=== PATIENT | female | born 2000 | race American Indian/Alaskan Native ===

== ENCOUNTER 2019-02-22 07:56 | Emergency (ER) | payer MEDICAID ==
[2019-02-22] MEDS ORDERED: NACL 0.9% 1000 ML 1,000 ML IV ONE (08:27)
[2019-02-22] MEDS ORDERED: ZOFRAN IV ONE (08:27)
[2019-02-22] MEDS ORDERED: TYLENOL PO ONE (08:29)
--- NOTE | 2019-02-22 08:33 | Emergency Department Report ---
ED Headache HPI - General Chief Complaint: Eye Problems Stated Complaint: BLURRED VISION/HEADACHE Time Seen by Provider: 02/22/19 08:11 Source: patient Exam Limitations: no limitations - History of Present Illness Initial Comments: 18-year-old female with no significant past medical and surgical history presents to the hospital complaints of intermittent left sided headache and blurred vision times one week. She is currently 19 weeks with her second . First resulted in a miscarriage in early first trimester. She has received care. She reports a left-sided frontal intermittent throbbing headache rated 7/10 in intensity that is currently present. No aggravating or alleviating factors reported. She is not taking any medications for pain. She complains of intermittent blurred vision times one week that worsened this morning prior to calling EMS. Blurred vision is now resolved. She does not wear glasses or contact lenses. Denies history of migraine or previous headache symptoms. She's had nausea and intermittent vomiting throughout her and was unable to fill her prescribed anti- emetic since it was not covered by insurance. Although decreased food intake reported patient is drinking alot of water (She presents with a 1/2 empty 2 liter bottle filled with water). She denies diarrhea, abdominal pain, chest p ain, shortness of breath, leg edema, dysuria, focal weakness, focal numbness, neck pain, or fever. PET STYLIST: Dr. Amy Ugarte Allergies/Adverse Reactions: Allergies No Known Allergies Allergy (Verified 02/22/19 07:57) Home Medications: Ambulatory Orders Ibuprofen [Motrin] 600 mg PO Q8H PRN #30 tablet 08/10/18 oxyCODONE /ACETAMINOPHEN [Percocet 5/325] 1 tab PO Q6HR PRN #20 tablet 08/10/18 Nitrofurantoin [place]/M-Cryst [Macrobid CAP] 100 mg PO Q12HR #14 capsule 02/22/19 Ondansetron [Zofran Odt] 4 mg PO Q8HR PRN #20 tab.rapdis 02/22/19 ED Review of Systems ROS: Stated complaint: BLURRED VISION/HEADACHE Other details as noted in HPI Comment: All other systems reviewed and negative ED Past Medical Hx - Past Medical History Previous Medical History?: No - Surgical History Past Surgical History?: No - Social History Smoking Status: Never Smoker Substance Use Type: None - Medications Home Medications: Home Medications Medication Instructions Recorded Confirmed Last Taken Type Ibuprofen [Motrin] 600 mg PO Q8H PRN #30 tablet 08/10/18 Unknown Rx oxyCODONE /ACETAMINOPHEN [Percocet 1 tab PO Q6HR PRN #20 tablet 08/10/18 Unknown Rx 5/325] Nitrofurantoin [place]/M-Cryst 100 mg PO Q12HR #14 capsule 02/22/19 Unknown Rx [Macrobid CAP] Ondansetron [Zofran Odt] 4 mg PO Q8HR PRN #20 tab.rapdis 02/22/19 Unknown Rx ED Physical Exam - General Limitations: No Limitations - Other Other exam information: General: No limitations, patient is alert in no acute distress Head exam: Atraumatic, normocephalic Eyes exam: Normal appearance, pupils equal reactive to light, extraocular movements intact, visual acuity bilateral 20/13, R 20/20, L 20/20 ENT: Moist mucous membrane, normal oropharynx Neck exam: Normal inspection, full range of motion, no meningismus nontender Respiratory exam: Clear to auscultation bilateral, no wheezes, rales, crackles Cardiovascular: Normal rate and rhythm, mild tachycardia regular Abdomen: Soft, nondistended, and nontender, with normal bowel sounds, no rebound, or guarding Extremity: Full range of motion normal inspection no deformity Back: Normal Inspection, full range of motion, no tenderness Neurologic: Alert, oriented x3, cranial nerves intact, no motor or sensory deficit, auwsat-qwts-amysas function intact Psychiatric: normal affect, normal mood Skin: Warm, dry, intact ED Course Vital Signs 02/22/19 02/22/19 08:05 09:08 Temperature 97.8 F Pulse Rate 110 H 92 H Respiratory 16 16 Rate Blood Pressure 130/78 Blood Pressure 100/67 [Left] O2 Sat by Pulse 98 100 Oximetry - Consultations Consultation #1: 02/22/19 10:30 case d/w Dr Peterson (covering Dr Amy Ugarte). Informed of ed workup, tx, and f/u plan. ED Medical Decision Making - Lab Data Result diagrams: 02/22/19 08:50 02/22/19 08:50 Lab Results 02/22/19 02/22/19 02/22/19 Range/Units 08:36 08:50 08:50 WBC 14.5 H (4.5-11.0) K/mm3 RBC 3.89 (3.65-5.03) M/mm3 Hgb 10.5 (10.1-14.3) gm/dl Hct 30.7 (30.3-42.9) % MCV 79 (79-97) fl MCH 27 L (28-32) pg MCHC 34 (30-34) % RDW 15.0 (13.2-15.2) % Plt Count 318 (140-440) K/mm3 Sodium (137-145) mmol/L Potassium (3.6-5.0) mmol/L Chloride (98-107) mmol/L Carbon Dioxide (22-30) mmol/L Anion Gap mmol/L BUN (7-17) mg/dL Creatinine (0.7-1.2) mg/dL Estimated GFR ml/min BUN/Creatinine Ratio % Glucose (65-100) mg/dL POC Glucose 103 (70-105) Calcium (8.4-10.2) mg/dL Urine Color Yellow (Yellow) Urine Turbidity Turbid (Clear) Urine pH 6.0 (5.0-7.0) Ur Specific [place] 1.011 (1.003-1.030) Urine Protein 30 mg/dl (Negative) mg/dL Urine Glucose (UA) Neg (Negative) mg/dL Urine Ketones Neg (Negative) mg/dL Urine Blood Sm (Negative) Urine Nitrite Pos (Negative) Urine Bilirubin Neg (Negative) Urine Urobilinogen < 2.0 (<2.0) mg/dL Ur Leukocyte Esterase Lg (Negative) Urine WBC (Auto) > 182.0 H (0.0-6.0) /HPF Urine RBC (Auto) > 182.0 (0.0-6.0) /HPF U Epithel Cells (Auto) 5.0 (0-13.0) /HPF Urine Bacteria (Auto) 2+ (Negative) /HPF Urine Mucus 1+ /HPF 02/22/19 Range/Units 08:50 WBC (4.5-11.0) K/mm3 RBC (3.65-5.03) M/mm3 Hgb (10.1-14.3) gm/dl Hct (30.3-42.9) % MCV (79-97) fl MCH (28-32) pg MCHC (30-34) % RDW (13.2-15.2) % Plt Count (140-440) K/mm3 Sodium 133 L (137-145) mmol/L Potassium 3.6 (3.6-5.0) mmol/L Chloride 97.7 L (98-107) mmol/L Carbon Dioxide 22 (22-30) mmol/L Anion Gap 17 mmol/L BUN 5 L (7-17) mg/dL Creatinine 0.6 L (0.7-1.2) mg/dL Estimated GFR > 60 ml/min BUN/Creatinine Ratio 8 % Glucose 101 H (65-100) mg/dL POC Glucose (70-105) Calcium 8.9 (8.4-10.2) mg/dL Urine Color (Yellow) Urine Turbidity (Clear) Urine pH (5.0-7.0) Ur Specific [place] (1.003-1.030) Urine Protein (Negative) mg/dL Urine Glucose (UA) (Negative) mg/dL Urine Ketones (Negative) mg/dL Urine Blood (Negative) Urine Nitrite (Negative) Urine Bilirubin (Negative) Urine Urobilinogen (<2.0) mg/dL Ur Leukocyte Esterase (Negative) Urine WBC (Auto) (0.0-6.0) /HPF Urine RBC (Auto) (0.0-6.0) /HPF U Epithel Cells (Auto) (0-13.0) /HPF Urine Bacteria (Auto) (Negative) /HPF Urine Mucus /HPF - EKG Data -: EKG Interpreted by Ca EKG shows normal: sinus rhythm (110), axis (qrs 41), QRS complexes (qrsd 51), ST-T waves (no stemi) - EKG Data When compared to previous EKG there are: previous EKG unavailable - Radiology Data Radiology results: report reviewed CT BRAIN: 02/22/2019 INDICATION / CLINICAL INFORMATION: left sided headache, blurred vision. COMPARISON: None available. FINDINGS: BRAIN/INTRACRANIAL STRUCTURES: Unenhanced CT images of the brain demonstrate no evidence of acute intracranial abnormality. Ventricles and sulci are normal in size and shape. There is no evidence of ischemic injury, hemorrhage, or mass. There are no abnormal extra-axial fluid collections. EXTRACRANIAL STRUCTURES: Unremarkable. IMPRESSION: Negative unenhanced CT of the brain. - Medical Decision Making Patient treated with Tylenol, Zofran, 1 L of normal saline, and Rocephin She reports feeling better Heart rate improved Mild hyponatremia and hypochloremia likely secondary to increased water intake relative to electrolytes Patient consult on drinking or electrolyte/glucose-containing fluids such as Gatorade or Powerade Patient will be discharged or treatment for UTI Case discussed with her IT QUALITY ANALYST group Follow-up recommend - Differential Diagnosis migraine, dehydration, anemia, central venous thrombosis, ICH, mass Critical Care Time: No Critical care attestation.: If time is entered above; I have spent that time in minutes in the direct care of this critically ill patient, excluding procedure time. ED Disposition Clinical Impression: , Nausea, UTI (urinary tract infection), Intermittent headache, Hyponatremia Disposition: TO HOME OR SELFCARE Is pt being admited?: No Does the pt Need Aspirin: No Condition: Stable Instructions: (ED), Hyponatremia (ED), Urinary Tract Infection in Women (ED), Acute Headache (ED) Additional Instructions: Take the medication as prescribed. Follow up with your IT QUALITY ANALYST doctor.. Return if symptoms worsen as indicated by your discharge instructions It is important that you drink Gatorade or Powerade instead of strictly water because your sodium is low. You have been prescribed an alternative medication for nausea. Take Tylenol as needed for pain You had been prescribed an antibiotic for urinary tract infection. Urine cultures have been sent and are pending. Return if your symptoms worsen instead of improve while taking this antibiotic. Your case has been discussed with your primary IT QUALITY ANALYST group prior to discharge. Prescriptions: Nitrofurantoin [place]/M-Cryst [Macrobid CAP] 100 mg PO Q12HR #14 capsule Ondansetron [Zofran Odt] 4 mg PO Q8HR PRN #20 tab.rapdis PRN Reason: Nausea And Vomiting Referrals: AMY UGARTE MD [Staff Physician] - 3-5 Days Time of Disposition: 10:44
[2019-02-22 09:08] VITALS: BP 100/67
[2019-02-22 09:12] LABS: Hematocrit 30.7 % (30.3-42.9); Hemoglobin 10.5 gm/dl (10.1-14.3); Mean Corpuscular HGB Conc 34 % (30-34); Mean Corpuscular Volume 79 fl (79-97); Platelet Count 318 K/mm3 (140-440); Red Blood Count 3.89 M/mm3 (3.65-5.03)
[2019-02-22 09:20] LABS: Bacteria,Urine 2+ /HPF (Negative); Bilirubin,Urine NEG (Negative); Blood,Urine SM (Negative); Mucus,Urine 1+ /HPF; Urobilinogen,Urine < 2.0 mg/dL (<2.0)
[2019-02-22 09:22] LABS: BUN/Creatinine Ratio 8; Blood Urea Nitrogen 5 mg/dL (7-17); Calcium 8.9 mg/dL (8.4-10.2); Hemolysis Index 31
[2019-02-22 09:34] LABS: Color,Urine Yellow (Yellow); RBC,Urine > 182.0 /HPF (0.0-6.0); WBC,Urine > 182.0 /HPF (0.0-6.0)
--- NOTE | 2019-02-22 09:34 | Cat Scan Report ---
CT BRAIN: 02/22/2019 INDICATION / CLINICAL INFORMATION: left sided headache, blurred vision. COMPARISON: None available. FINDINGS: BRAIN/INTRACRANIAL STRUCTURES: Unenhanced CT images of the brain demonstrate no evidence of acute int racranial abnormality. Ventricles and sulci are normal in size and shape. There is no evidence of ischemic injury, hemorrhage, or mass. There are no abnormal extra-axial fluid collections. EXTRACRANIAL STRUCTURES: Unremarkable. IMPRESSION: Negative unenhanced CT of the brain. All CT scans at this location are performed using dose reduction to ALARA by means of automated expos ure control. Signer Name: David Yao MD Signed: 02/22/2019 9:29 AM Workstation Name: [id number]
[2019-02-22] MEDS ORDERED: ROCEPHIN/NS 1 GM/50 ML 1 GM/50 ML BAG IV ONE (09:45)
[2019-02-22 11:30] LABS: Band Neutrophils # (Manual) 0.3 K/mm3; Basophils % (Manual) 0 % (0.0-1.8); Eosinophils % (Manual) 0 % (0.0-4.3); Myelocytes # (Manual) 0.1 K/mm3; Total Cells Counted 100
[2019-02-22 11:31] LABS: Large Platelets Rare; Platelet Estimate Consistent w Auto; RBC Morphology Normal
== END 2019-02-22 10:50 | disposition home or self-care (01) ==
LOC: ED 07:56
DX: O23.42 Unspecified infection of urinary tract in pregnancy, second trimester (principal); O26.892 Other specified pregnancy related conditions, second trimester; R51 Headache; O99.282 Endocrine, nutritional and metabolic diseases complicating pregnancy, second trimester; E87.1 Hypo-osmolality and hyponatremia; Z79.899 Other long term (current) drug therapy; Z3A.19 19 weeks gestation of pregnancy
CPT/HCPCS: 36415; 70450; 80048; 81001; 82962; 85007; 85025; 87086; 93005; 93010; 96361; 96365; 96375; 99285; J0696; J2405; J7030

== ENCOUNTER 2019-06-19 18:28 | Outpatient (CLI) | payer MEDICAID, OTHER ==
[2019-06-19 19:18] VITALS: BP 118/78
[2019-06-19 21:21] LABS: Bilirubin,Urine NEG (Negative); Blood,Urine NEG (Negative); Color,Urine Straw (Yellow); Protein,Urine <15 mg/dL mg/dL (Negative); Urobilinogen,Urine < 2.0 mg/dL (<2.0); WBC,Urine < 1.0 /HPF (0.0-6.0)
--- NOTE | 2019-06-19 22:12 | Ultrasound Report ---
US OB limited INDICATION / CLINICAL INFORMATION: r/o SROM; NEO and position. COMPARISON: None available. FINDINGS: Viable single intrauterine gestation in the cephalic presentation. The NEO is 17. heart rate is recorded at 126 bpm. IMPRESSION: 1. Viable single fetus in the cephalic presentation, NEO normal. Signer Name: Jermain Shay MD Signed: 06/19/2019 10:08 PM Workstation Name: [id number]
== END 2019-06-19 21:05 | disposition home or self-care (01) ==
LOC: TRG 18:28
PROVIDERS: ATTEND Obstetrics & Gynecology
DX: O47.03 False labor before 37 completed weeks of gestation, third trimester (principal); Z3A.36 36 weeks gestation of pregnancy
CPT/HCPCS: 59025; 76815; 81001

== ENCOUNTER 2020-04-03 10:14 | Emergency (ER) | payer MEDICAID ==
[2020-04-03 11:33] LABS: Bacteria,Urine 1+ /HPF (Negative); Bilirubin,Urine NEG (Negative); Blood,Urine SM (Negative); Color,Urine Straw (Yellow); Protein,Urine <15 mg/dL mg/dL (Negative); Urobilinogen,Urine < 2.0 mg/dL (<2.0)
[2020-04-03 11:35] LABS: HCG Qualitative,Urine Negative (Negative)
--- NOTE | 2020-04-03 14:24 | Emergency Department Report ---
ED General Adult HPI - General Chief complaint: Urogenital-Female Stated complaint: PELVIC CHECK UP Time Seen by Provider: 04/03/20 13:07 Source: patient Mode of arrival: Ambulatory Limitations: No Limitations - History of Present Illness Initial comments: 19-year-old -Thai female patient without past medical history presents with complaints of pelvic pain intermittently x1.5 weeks. Patient also states she had some abnormal vaginal bleeding today that has now resolved. She rates her current pain as a 3/10 in severity and describes it as cramping in nature. She admits to abnormal vaginal discharge and dyspareunia. She denies any hematuria, dysuria, urinary frequency, stool changes, nausea/vomiting/diarrhea, or fever/chills/sweats. -: Sudden Worsens with: none - Related Data Previous Rx's Medication Instructions Recorded Last Taken Type Ibuprofen [Motrin] 600 mg PO Q8H PRN #30 tablet 08/10/18 Unknown Rx oxyCODONE /ACETAMINOPHEN [Percocet 1 tab PO Q6HR PRN #20 tablet 08/10/18 Unknown Rx 5/325] Nitrofurantoin [place]/M-Cryst 100 mg PO Q12HR #14 capsule 02/22/19 Unknown Rx [Macrobid CAP] Ondansetron [Zofran Odt] 4 mg PO Q8HR PRN #20 tab.rapdis 02/22/19 Unknown Rx Doxycycline Monohydrate 100 mg PO BID 14 Days #28 tablet 04/03/20 Unknown Rx Fluconazole (Nf) [Diflucan TAB] 150 mg PO ONCE 1 Days #1 tablet 04/03/20 Unknown Rx Allergies Allergy/AdvReac Type Severity Reaction Status Date / Time No Known Allergies Allergy Verified 02/22/19 07:57 ED Review of Systems ROS: Stated complaint: PELVIC CHECK UP Other details as noted in HPI Constitutional: denies: chills, diaphoresis, fever, malaise ENT: denies: throat pain Respiratory: denies: cough, shortness of breath Cardiovascular: denies: chest pain Gastrointestinal: abdominal pain. denies: nausea, vomiting, diarrhea, constipation, hematemesis, melena Genitourinary: discharge, abnormal menses, dyspareunia. denies: urgency, dysuria, frequency, hematuria Musculoskeletal: denies: back pain, joint swelling, arthralgia Skin: denies: rash, lesions, change in color Neurological: denies: headache, abnormal gait Hematological/Lymphatic: denies: easy bleeding, easy bruising ED Past Medical Hx - Past Medical History Hx Hypertension: No Hx Diabetes: No Hx Deep Vein Thrombosis: No Hx Renal Disease: No Hx Sickle Cell Disease: No Hx Seizures: No Hx Asthma: No Hx HIV: No - Social History Smoking Status: Never Smoker - Medications Home Medications: Home Medications Medication Instructions Recorded Confirmed Last Taken Type Ibuprofen [Motrin] 600 mg PO Q8H PRN #30 tablet 08/10/18 Unknown Rx oxyCODONE /ACETAMINOPHEN [Percocet 1 tab PO Q6HR PRN #20 tablet 08/10/18 Unknown Rx 5/325] Nitrofurantoin [place]/M-Cryst 100 mg PO Q12HR #14 capsule 02/22/19 Unknown Rx [Macrobid CAP] Ondansetron [Zofran Odt] 4 mg PO Q8HR PRN #20 tab.rapdis 02/22/19 Unknown Rx Doxycycline Monohydrate 100 mg PO BID 14 Days #28 tablet 04/03/20 Unknown Rx Fluconazole (Nf) [Diflucan TAB] 150 mg PO ONCE 1 Days #1 tablet 04/03/20 Unknown Rx ED Physical Exam - General Limitations: No Limitations General appearance: alert, in no apparent distress - Head Head exam: Present: atraumatic, normocephalic - Eye Eye exam: Present: normal appearance. Absent: PERRL - Respiratory Respiratory exam: Present: normal lung sounds bilaterally. Absent: respiratory distress - Cardiovascular Cardiovascular Exam: Present: regular rate, normal rhythm. Absent: systolic murmur, diastolic murmur, rubs, gallop - GI/Abdominal GI/Abdominal exam: Present: soft, normal bowel sounds. Absent: distended, tenderness, guarding, rebound, rigid - External exam: Absent: erythema, lesions, lacerations Speculum exam: Present: vaginal discharge, cervical discharge (Green in color). Absent: vaginal bleeding Bi-manual exam: Present: cervical motion tendernes, other (Cervix is erythemic and friable) - Back Exam Back exam: Present: normal inspection. Absent: CVA tenderness (R), CVA tenderness (L) - Neurological Exam Neurological exam: Present: alert, oriented X3 - Psychiatric Psychiatric exam: Present: normal affect, normal mood - Skin Skin exam: Present: warm, dry, intact, normal color. Absent: rash, cyanosis, diaphoretic, ecchymosis ED Course Vital Signs 04/03/20 10:28 Temperature 98.4 F Pulse Rate 72 Respiratory 18 Rate Blood Pressure 125/78 O2 Sat by Pulse 100 Oximetry ED Medical Decision Making - Lab Data Lab Results 04/03/20 Range/Units 10:49 Urine Color Straw (Yellow) Urine Turbidity Clear (Clear) Urine pH 6.0 (5.0-7.0) Ur Specific [place] 1.014 (1.003-1.030) Urine Protein <15 mg/dl (Negative) mg/dL Urine Glucose (UA) Neg (Negative) mg/dL Urine Ketones Neg (Negative) mg/dL Urine Blood Sm (Negative) Urine Nitrite Neg (Negative) Urine Bilirubin Neg (Negative) Urine Urobilinogen < 2.0 (<2.0) mg/dL Ur Leukocyte Esterase Lg (Negative) Urine WBC (Auto) 7.0 H (0.0-6.0) /HPF Urine RBC (Auto) 1.0 (0.0-6.0) /HPF U Epithel Cells (Auto) 2.0 (0-13.0) /HPF Urine Bacteria (Auto) 1+ (Negative) /HPF Urine HCG, Qual Negative (Negative) - Medical Decision Making 19-year-old -Thai female patient without past medical history presents with complaints of pelvic pain intermittently x1.5 weeks. Patient also states she had some abnormal vaginal bleeding today that has now resolved. She rates her current pain as a 3/10 in severity and describes it as cramping in nature. She admits to abnormal vaginal discharge and dyspareunia. She denies any hematuria, dysuria, urinary frequency, stool changes, nausea/vomiting/diarrhea, or fever/chills/sweats. On exam, patient has some tenderness to the cervix and the cervix is noted to be friable with green discharge. Trichomonas is negative, bacterial vaginosis and yeast noted on wet prep. Will treat for PID. Patient given IM Rocephin and azithromycin p.o. She is to discharge home on doxycycline and Diflucan. Recommend follow-up with [facility] in 3 days. Her vitals are normal, she is well- appearing, stable for discharge home. Strict return precautions were discussed in detail with patient who verbalized understanding. Critical care attestation.: If time is entered above; I have spent that time in minutes in the direct care of this critically ill patient, excluding procedure time. ED Disposition Clinical Impression: PID (acute pelvic inflammatory disease), Bacterial vaginosis, Yeast vaginitis Disposition: TO HOME OR SELFCARE Is pt being admited?: No Condition: Stable Instructions: Bacterial Vaginosis (ED), Pelvic Inflammatory Disease (ED), Vulvovaginal Candidiasis (ED) Prescriptions: Fluconazole (Nf) [Diflucan TAB] 150 mg PO ONCE 1 Days #1 tablet Doxycycline Monohydrate 100 mg PO BID 14 Days #28 tablet Referrals: PRIMARY CARE, [Primary Care Provider] - 3-5 Days VY BERMUDEZ MD [Staff Physician] - 2-3 Days Forms: STI Treatment and Prevention
[2020-04-03] MEDS ORDERED: LIDOCAINE-MPF (1%) 10 MG/1 ML VIAL 5 ML INFILTRATI ONE (15:30)
[2020-04-03 16:56] VITALS: BP 129/73
== END 2020-04-03 16:10 | disposition home or self-care (01) ==
LOC: ED 10:14
DX: N73.0 Acute parametritis and pelvic cellulitis (principal); B96.89 Other specified bacterial agents as the cause of diseases classified elsewhere; B37.3 Candidiasis of vulva and vagina; Z79.1 Long term (current) use of non-steroidal anti-inflammatories (NSAID); Z79.899 Other long term (current) drug therapy
CPT/HCPCS: 81001; 81025; 87086; 87210; 87591; 96372; 99284; J0696

== ENCOUNTER 2020-09-07 09:15 | Emergency (ER) | payer MEDICAID ==
[2020-09-07 09:27] VITALS: BP 119/74
--- NOTE | 2020-09-07 10:41 | Emergency Department Report ---
ED Female HPI - General Chief complaint: Abdominal Pain Stated complaint: VAGINAL CHECK UP Time Seen by Provider: 09/07/20 10:00 Source: patient Mode of arrival: Ambulatory Limitations: No Limitations - History of Present Illness Initial comments: This is a 19-year-old female nontoxic, well nourished in appearance, no acute signs of distress presents to the ED with c/o of vaginal discharge x1 month. Patient stated had some intermittent pelvic pain but currently denies any pelvic or abdominal pain. Patient stated she is not concerned but STD. Patient stated last sexual activity was several months ago. Patient denies any vaginal pain or swelling. Patient denies any vaginal ulcers or lesions. Patient denies any nausea, vomiting, chest pain, shortness of breathe, fever, chills, headache, back pain, numbness, tingling, stiff neck. Patient denies any urinary symptoms. Patient denies any allergies or PMH. MD Complaint: vaginal discharge -: month(s) Radiation: non-radiating, suprapubic Severity scale (0 -10): 0 Improves with: none Worsens with: none Are you Now?: No Associated Symptoms: vaginal discharge. denies: vaginal bleeding, abdominal pain, nausea/vomiting, fever/chills, headaches, loss of appetite, dysuria, hematuria, rash, seizure, shortness of breath, syncope, weakness - Related Data Sexually active: No Previous Rx's Medication Instructions Recorded Last Taken Type Ibuprofen [Motrin] 600 mg PO Q8H PRN #30 tablet 08/10/18 Unknown Rx oxyCODONE /ACETAMINOPHEN [Percocet 1 tab PO Q6HR PRN #20 tablet 08/10/18 Unknown Rx 5/325] Nitrofurantoin Grady/M-Cryst 100 mg PO Q12HR #14 capsule 02/22/19 Unknown Rx [Macrobid CAP] Ondansetron [Zofran Odt] 4 mg PO Q8HR PRN #20 tab.rapdis 02/22/19 Unknown Rx Doxycycline Monohydrate 100 mg PO BID 14 Days #28 tablet 04/03/20 Unknown Rx Fluconazole (Nf) [Diflucan TAB] 150 mg PO ONCE 1 Days #1 tablet 04/03/20 Unknown Rx metroNIDAZOLE [Flagyl] 500 mg PO Q12HR #14 tab 09/07/20 Unknown Rx Allergies Allergy/AdvReac Type Severity Reaction Status Date / Time No Known Allergies Allergy Verified 09/07/20 09:22 ED Review of Systems ROS: Stated complaint: VAGINAL CHECK UP Other details as noted in HPI Comment: All other systems reviewed and negative Constitutional: denies: chills, fever Eyes: denies: eye pain, eye discharge, vision change ENT: denies: ear pain, throat pain Respiratory: denies: cough, shortness of breath, wheezing Cardiovascular: denies: chest pain, palpitations Endocrine: no symptoms reported Gastrointestinal: denies: abdominal pain, nausea, diarrhea Genitourinary: discharge. denies: urgency, dysuria, frequency, hematuria, abnormal menses, dyspareunia Musculoskeletal: denies: back pain, joint swelling, arthralgia Skin: denies: rash, lesions Neurological: denies: headache, weakness, paresthesias Psychiatric: denies: anxiety, depression Hematological/Lymphatic: denies: easy bleeding, easy bruising ED Past Medical Hx - Past Medical History Previous Medical History?: No Hx Hypertension: No Hx Diabetes: No Hx Deep Vein Thrombosis: No Hx Renal Disease: No Hx Sickle Cell Disease: No Hx Seizures: No Hx Asthma: No Hx HIV: No - Surgical History Past Surgical History?: No - Social History Smoking Status: Never Smoker Substance Use Type: None - Medications Home Medications: Home Medications Medication Instructions Recorded Confirmed Last Taken Type Ibuprofen [Motrin] 600 mg PO Q8H PRN #30 tablet 08/10/18 Unknown Rx oxyCODONE /ACETAMINOPHEN [Percocet 1 tab PO Q6HR PRN #20 tablet 08/10/18 Unknown Rx 5/325] Nitrofurantoin Grady/M-Cryst 100 mg PO Q12HR #14 capsule 02/22/19 Unknown Rx [Macrobid CAP] Ondansetron [Zofran Odt] 4 mg PO Q8HR PRN #20 tab.rapdis 02/22/19 Unknown Rx Doxycycline Monohydrate 100 mg PO BID 14 Days #28 tablet 04/03/20 Unknown Rx Fluconazole (Nf) [Diflucan TAB] 150 mg PO ONCE 1 Days #1 tablet 04/03/20 Unknown Rx metroNIDAZOLE [Flagyl] 500 mg PO Q12HR #14 tab 09/07/20 Unknown Rx ED Physical Exam - General Limitations: No Limitations General appearance: alert, in no apparent distress - Head Head exam: Present: atraumatic, normocephalic - Eye Eye exam: Present: normal appearance - Neck Neck exam: Present: normal inspection, full ROM - Respiratory Respiratory exam: Absent: respiratory distress - Cardiovascular Cardiovascular Exam: Present: regular rate - GI/Abdominal GI/Abdominal exam: Present: soft, normal bowel sounds. Absent: distended, tenderness, guarding, rebound, rigid, diminished bowel sounds - External exam: Present: normal external exam, other (Production Technologist Madeleine ARRIAGA present during exam). Absent: erythema, swelling, lesions, lacerations, ecchymosis, bleeding Speculum exam: Present: cervical discharge, other (Production Technologist Madeleine ARRIAGA present during exam). Absent: erythema, vaginal discharge, vaginal bleeding, foreign body, tissue, laceration Bi-manual exam: Present: normal bi-manual exam, other (Production Technologist Madeleine ARRIAGA present during exam). Absent: cervical motion tendernes, adnexal tenderness, adnexal mass, uterine enlargement, uterine tenderness - Extremities Exam Extremities exam: Present: normal inspection, full ROM - Back Exam Back exam: Present: normal inspection, full ROM. Absent: tenderness, CVA tenderness (R), CVA tenderness (L), muscle spasm, paraspinal tenderness, vertebral tenderness, rash noted - Neurological Exam Neurological exam: Present: alert, oriented X3, normal gait - Psychiatric Psychiatric exam: Present: normal affect, normal mood - Skin Skin exam: Present: warm, dry, intact, normal color. Absent: rash ED Course Vital Signs 09/07/20 09:23 Temperature 98.7 F Pulse Rate 83 Respiratory 20 Rate Blood Pressure 119/74 O2 Sat by Pulse 100 Oximetry - Reevaluation(s) Reevaluation #1: 09/07/20 10:39 Patient is speaking in full sentences with no signs of distress noted. ED Medical Decision Making - Lab Data Lab Results 09/07/20 Range/Units 10:35 Urine Color Yellow (Yellow) Urine Turbidity Clear (Clear) Urine pH 5.0 (5.0-7.0) Ur Specific [place] 1.016 (1.003-1.030) Urine Protein <15 mg/dl (Negative) mg/dL Urine Glucose (UA) Neg (Negative) mg/dL Urine Ketones Neg (Negative) mg/dL Urine Blood Neg (Negative) Urine Nitrite Neg (Negative) Ur Reducing Substances Not Reportable Urine Bilirubin Neg (Negative) Urine Ictotest Not Reportable Urine Urobilinogen < 2.0 (<2.0) mg/dL Ur Leukocyte Esterase Neg (Negative) Urine WBC (Auto) 1.0 (0.0-6.0) /HPF Urine RBC (Auto) < 1.0 (0.0-6.0) /HPF U Epithel Cells (Auto) < 1.0 (0-13.0) /HPF Urine Mucus Few /HPF Urine HCG, Qual Negative (Negative) - Medical Decision Making This is a 19-year-old female that presents with bacterial vaginosis. Patient is stable was examined by me. There is no abdominal or pelvic tenderness. No pelvic pain. UA obtained. Wet prep obtained. Gonorrhea chlamydia swab pending. Patient was instructed to return in 2-3 days for GC results. Patient stated is not concerned about STD and does not want empirical treatment. Patient was instructed to Follow-up with a primary care doctor in 3-5 days or if symptoms worsen and continue return to emergency room as soon as possible. At time of discharge, the patient does not seem toxic or ill in appearance. No acute signs of distress noted. Patient agrees to discharge treatment plan of care. No further questions noted by the patient. Critical care attestation.: If time is entered above; I have spent that time in minutes in the direct care of this critically ill patient, excluding procedure time. ED Disposition Clinical Impression: Bacterial vaginosis Disposition: DC-01 TO HOME OR SELFCARE Is pt being admited?: No Does the pt Need Aspirin: No Condition: Stable Instructions: Bacterial Vaginosis, [id number], Metronidazole tablets or capsules, Bacterial Vaginosis (ED), Abdominal Pain (ED) Additional Instructions: Follow-up with a primary care doctor in 3-5 days or if symptoms worsen and continue return to emergency room as soon as possible. Prescriptions: metroNIDAZOLE [Flagyl] 500 mg PO Q12HR #14 tab Referrals: JUN LEYVA MD [Primary Care Provider] - 3-5 Days PRIMARY CAREMD [Referring] - 3-5 Days NEGRITO ETIENNE MD [Staff Physician] - 3-5 Days Time of Disposition: 11:17
[2020-09-07 10:52] LABS: HCG Qualitative,Urine Negative (Negative)
[2020-09-07 10:58] LABS: Mucus,Urine FEW /HPF; RBC,Urine < 1.0 /HPF (0.0-6.0)
[2020-09-07 11:15] LABS: Bilirubin,Urine NEG (Negative); Blood,Urine NEG (Negative); Color,Urine Yellow (Yellow); Protein,Urine <15 mg/dL mg/dL (Negative); Urobilinogen,Urine < 2.0 mg/dL (<2.0)
== END 2020-09-07 11:50 | disposition home or self-care (01) ==
LOC: ED 09:15
DX: N76.0 Acute vaginitis (principal); B96.89 Other specified bacterial agents as the cause of diseases classified elsewhere; Z79.1 Long term (current) use of non-steroidal anti-inflammatories (NSAID); Z79.899 Other long term (current) drug therapy
CPT/HCPCS: 81001; 81025; 87210; 87591; 99284

== ENCOUNTER 2020-09-25 16:01 | Emergency (ER) | payer MEDICAID ==
[2020-09-25 16:14] VITALS: BP 106/68
[2020-09-25 16:45] LABS: Basophils % (Auto) 0.5 % (0.0-1.8); Eosinophils # (Auto) 0.1 K/mm3 (0.0-0.4); Eosinophils % (Auto) 1.1 % (0.0-4.3); Hematocrit 37.8 % (30.3-42.9); Hemoglobin 12.7 gm/dl (10.1-14.3); Lymphocytes # (Auto) 1.9 K/mm3 (1.2-5.4); Lymphocytes % (Auto) 24.9 % (13.4-35.0); Mean Corpuscular HGB Conc 34 % (30-34); Mean Corpuscular Volume 80 fl (79-97); Monocytes # (Auto) 0.8 K/mm3 (0.0-0.8); Monocytes % (Auto) 10.1 % (0.0-7.3); Platelet Count 242 K/mm3 (140-440); Red Blood Count 4.75 M/mm3 (3.65-5.03)
--- NOTE | 2020-09-25 17:09 | Emergency Department Report ---
ED Female HPI - General Chief complaint: Vaginal Bleeding Stated complaint: VAGINAL BLEEDING Time Seen by Provider: 09/25/20 16:33 Source: patient Mode of arrival: Ambulatory Limitations: No Limitations - History of Present Illness Initial comments: This is a 19-year-old female nontoxic, well nourished in appearance, no acute signs of distress presents to the ED with c/o of vaginal bleeding x1 day. Last menstrual cycle was September 09, 2020 and patient stated to have vaginal bleeding yesterday. Patient otherwise denies any other complaints or symptoms. Denies any vaginal discharge. Patient denies any abdominal or pelvic pain. Patient denies any vaginal discharge or foul odor. Patient denies any nausea, vomiting, chest pain, shortness of breathe, fever, chills, headache, stiff neck, numbness, tingling. Patient denies any urinary symptoms. Patient denies any allergies or PMH. MD Complaint: vaginal bleeding -: days(s) Severity scale (0 -10): 0 Improves with: none Worsens with: none Are you Now?: No Associated Symptoms: vaginal bleeding. denies: vaginal discharge, abdominal pain, nausea/vomiting, fever/chills, headaches, loss of appetite, dysuria, h ematuria, rash, seizure, shortness of breath, syncope, weakness - Related Data Previous Rx's Medication Instructions Recorded Last Taken Type Ibuprofen [Motrin] 600 mg PO Q8H PRN #30 tablet 08/10/18 Unknown Rx oxyCODONE /ACETAMINOPHEN [Percocet 1 tab PO Q6HR PRN #20 tablet 08/10/18 Unknown Rx 5/325] Nitrofurantoin [place]/M-Cryst 100 mg PO Q12HR #14 capsule 02/22/19 Unknown Rx [Macrobid CAP] Ondansetron [Zofran Odt] 4 mg PO Q8HR PRN #20 tab.rapdis 02/22/19 Unknown Rx Doxycycline Monohydrate 100 mg PO BID 14 Days #28 tablet 04/03/20 Unknown Rx Fluconazole (Nf) [Diflucan TAB] 150 mg PO ONCE 1 Days #1 tablet 04/03/20 Unknown Rx metroNIDAZOLE [Flagyl] 500 mg PO Q12HR #14 tab 09/07/20 Unknown Rx Allergies Allergy/AdvReac Type Severity Reaction Status Date / Time No Known Allergies Allergy Verified 09/25/20 16:09 ED Review of Systems ROS: Stated complaint: VAGINAL BLEEDING Other details as noted in HPI Constitutional: denies: chills, fever Eyes: denies: eye pain, eye discharge, vision change ENT: denies: ear pain, throat pain Respiratory: denies: cough, shortness of breath, wheezing Cardiovascular: denies: chest pain, palpitations Endocrine: no symptoms reported Gastrointestinal: denies: abdominal pain, nausea, diarrhea Genitourinary: abnormal menses. denies: urgency, dysuria, discharge Musculoskeletal: denies: back pain, joint swelling, arthralgia Skin: denies: rash, lesions Neurological: denies: headache, weakness, paresthesias Psychiatric: denies: anxiety, depression Hematological/Lymphatic: denies: easy bleeding, easy bruising ED Past Medical Hx - Past Medical History Previous Medical History?: No Hx Hypertension: No Hx Diabetes: No Hx Deep Vein Thrombosis: No Hx Renal Disease: No Hx Sickle Cell Disease: No Hx Seizures: No Hx Asthma: No Hx HIV: No - Surgical History Past Surgical History?: No - Social History Smoking Status: Never Smoker Substance Use Type: None - Medications Home Medications: Home Medications Medication Instructions Recorded Confirmed Last Taken Type Ibuprofen [Motrin] 600 mg PO Q8H PRN #30 tablet 08/10/18 Unknown Rx oxyCODONE /ACETAMINOPHEN [Percocet 1 tab PO Q6HR PRN #20 tablet 08/10/18 Unknown Rx 5/325] Nitrofurantoin Boss[place]/M-Cryst 100 mg PO Q12HR #14 capsule 02/22/19 Unknown Rx [Macrobid CAP] Ondansetron [Zofran Odt] 4 mg PO Q8HR PRN #20 tab.rapdis 02/22/19 Unknown Rx Doxycycline Monohydrate 100 mg PO BID 14 Days #28 tablet 04/03/20 Unknown Rx Fluconazole (Nf) [Diflucan TAB] 150 mg PO ONCE 1 Days #1 tablet 04/03/20 Unknown Rx metroNIDAZOLE [Flagyl] 500 mg PO Q12HR #14 tab 09/07/20 Unknown Rx ED Physical Exam - General Limitations: No Limitations General appearance: alert, in no apparent distress - Head Head exam: Present: atraumatic, normocephalic - Eye Eye exam: Present: normal appearance - Neck Neck exam: Present: normal inspection, full ROM - Respiratory Respiratory exam: Absent: respiratory distress - Cardiovascular Cardiovascular Exam: Present: regular rate - GI/Abdominal GI/Abdominal exam: Present: soft, normal bowel sounds. Absent: distended, tenderness, guarding, rebound, rigid, diminished bowel sounds - Extremities Exam Extremities exam: Present: full ROM - Back Exam Back exam: Present: normal inspection, full ROM. Absent: tenderness, CVA tenderness (R), CVA tenderness (L), muscle spasm, paraspinal tenderness, vertebral tenderness, rash noted - Neurological Exam Neurological exam: Present: alert, oriented X3, normal gait - Psychiatric Psychiatric exam: Present: normal affect, normal mood - Skin Skin exam: Present: warm, dry, intact, normal color. Absent: rash ED Course Vital Signs 09/25/20 16:13 Temperature 99.4 F Pulse Rate 90 Respiratory 16 Rate Blood Pressure 106/68 O2 Sat by Pulse 99 Oximetry - Reevaluation(s) Reevaluation #1: 09/25/20 17:09 Patient is speaking in full sentences with no signs of distress noted. ED Medical Decision Making - Lab Data Result diagrams: 09/25/20 16:27 09/25/20 16:27 Lab Results 09/25/20 09/25/20 09/25/20 Range/Units 16:27 16:27 16:27 WBC 7.8 (4.5-11.0) K/mm3 RBC 4.75 (3.65-5.03) M/mm3 Hgb 12.7 (10.1-14.3) gm/dl Hct 37.8 (30.3-42.9) % MCV 80 (79-97) fl MCH 27 L (28-32) pg MCHC 34 (30-34) % RDW 18.0 H (13.2-15.2) % Plt Count 242 (140-440) K/mm3 Lymph % (Auto) 24.9 (13.4-35.0) % [place] % (Auto) 10.1 H (0.0-7.3) % Eos % (Auto) 1.1 (0.0-4.3) % Baso % (Auto) 0.5 (0.0-1.8) % Lymph # (Auto) 1.9 (1.2-5.4) K/mm3 [place] # (Auto) 0.8 (0.0-0.8) K/mm3 Eos # (Auto) 0.1 (0.0-0.4) K/mm3 Baso # (Auto) 0.0 (0.0-0.1) K/mm3 Seg Neutrophils % 63.4 (40.0-70.0) % Seg Neutrophils # 4.9 (1.8-7.7) K/mm3 Sodium 139 (137-145) mmol/L Potassium 4.3 (3.6-5.0) mmol/L Chloride 104.3 (98-107) mmol/L Carbon Dioxide 24 (22-30) mmol/L Anion Gap 15 mmol/L BUN 7 (7-17) mg/dL Creatinine 0.8 (0.6-1.2) mg/dL Estimated GFR > 60 ml/min BUN/Creatinine Ratio 9 % Glucose 96 (65-100) mg/dL Calcium 8.6 (8.4-10.2) mg/dL Total Bilirubin 0.20 (0.1-1.2) mg/dL AST 12 (5-40) units/L ALT 9 (7-56) units/L Alkaline Phosphatase 43 (35-129) units/L Total Protein 6.9 (6.3-8.2) g/dL Albumin 4.0 (3.9-5) g/dL Albumin/Globulin Ratio 1.4 % HCG, Qual Negative (Negative) Urine Color (Yellow) Urine Turbidity (Clear) Urine pH (5.0-7.0) Ur Specific R[place] (1.003-1.030) Urine Protein (Negative) mg/dL Urine Glucose (UA) (Negative) mg/dL Urine Ketones (Negative) mg/dL Urine Blood (Negative) Urine Nitrite (Negative) Urine Bilirubin (Negative) Urine Urobilinogen (<2.0) mg/dL Ur Leukocyte Esterase (Negative) Urine WBC (Auto) (0.0-6.0) /HPF Urine RBC (Auto) (0.0-6.0) /HPF U Epithel Cells (Auto) (0-13.0) /HPF 09/25/20 Range/Units 17:04 WBC (4.5-11.0) K/mm3 RBC (3.65-5.03) M/mm3 Hgb (10.1-14.3) gm/dl Hct (30.3-42.9) % MCV (79-97) fl MCH (28-32) pg MCHC (30-34) % RDW (13.2-15.2) % Plt Count (140-440) K/mm3 Lymph % (Auto) (13.4-35.0) % [place] % (Auto) (0.0-7.3) % Eos % (Auto) (0.0-4.3) % Baso % (Auto) (0.0-1.8) % Lymph # (Auto) (1.2-5.4) K/mm3 [place] # (Auto) (0.0-0.8) K/mm3 Eos # (Auto) (0.0-0.4) K/mm3 Baso # (Auto) (0.0-0.1) K/mm3 Seg Neutrophils % (40.0-70.0) % Seg Neutrophils # (1.8-7.7) K/mm3 Sodium (137-145) mmol/L Potassium (3.6-5.0) mmol/L Chloride (98-107) mmol/L Carbon Dioxide (22-30) mmol/L Anion Gap mmol/L BUN (7-17) mg/dL Creatinine (0.6-1.2) mg/dL Estimated GFR ml/min BUN/Creatinine Ratio % Glucose (65-100) mg/dL Calcium (8.4-10.2) mg/dL Total Bilirubin (0.1-1.2) mg/dL AST (5-40) units/L ALT (7-56) units/L Alkaline Phosphatase (35-129) units/L Total Protein (6.3-8.2) g/dL Albumin (3.9-5) g/dL Albumin/Globulin Ratio % HCG, Qual (Negative) Urine Color Yellow (Yellow) Urine Turbidity Clear (Clear) Urine pH 6.0 (5.0-7.0) Ur Specific Rison 1.015 (1.003-1.030) Urine Protein <15 mg/dl (Negative) mg/dL Urine Glucose (UA) Neg (Negative) mg/dL Urine Ketones Neg (Negative) mg/dL Urine Blood Mod (Negative) Urine Nitrite Neg (Negative) Urine Bilirubin Neg (Negative) Urine Urobilinogen 2.0 (<2.0) mg/dL Ur Leukocyte Esterase Neg (Negative) Urine WBC (Auto) 2.0 (0.0-6.0) /HPF Urine RBC (Auto) 11.0 (0.0-6.0) /HPF U Epithel Cells (Auto) 2.0 (0-13.0) /HPF - Medical Decision Making 19-year-old female that presents with abnormal menstrual cycle. Patient is stable and was examined by me. Physical exam is unremarkable. Patient is notified of the lab results with no questions noted by the patient. Patient was instructed to follow-up with a primary care and [facility]ETING MANAGER doctor in 3-5 days or if symptoms worsen and continue return to emergency room as soon as possible. At time of discharge, the patient does not seem toxic or ill in appearance. No acute signs of distress noted. Patient agrees to discharge treatment plan of care. No further questions noted by the patient. Critical care attestation.: If time is entered above; I have spent that time in minutes in the direct care of this critically ill patient, excluding procedure time. ED Disposition Clinical Impression: Abnormal menstrual cycle Disposition: TO HOME OR SELFCARE Is pt being admited?: No Does the pt Need Aspirin: No Condition: Stable Additional Instructions: Follow-up with a primary care and RETAIL MARKETING MANAGER doctor in 3-5 days or if symptoms worsen and continue return to emergency room as soon as possible. Referrals: JUN LEYVA MD [Primary Care Provider] - 3-5 Days PRIMARY MD ALLIE [Referring] - 3-5 Days NEGRITO ETIENNE MD [Staff Physician] - 3-5 Days [facility] [Provider Group] - 3-5 Days [facility] [Provider Group] - 3-5 Days Time of Disposition: 18:12
[2020-09-25 17:13] LABS: Alanine Aminotransferase 9 units/L (7-56); BUN/Creatinine Ratio 9; Blood Urea Nitrogen 7 mg/dL (7-17); Calcium 8.6 mg/dL (8.4-10.2); Hemolysis Index 5
[2020-09-25 17:47] LABS: Bilirubin,Urine NEG (Negative); Blood,Urine MOD (Negative); Color,Urine Yellow (Yellow); Protein,Urine <15 mg/dL mg/dL (Negative)
== END 2020-09-25 18:19 | disposition home or self-care (01) ==
LOC: ED 16:01
DX: N92.6 Irregular menstruation, unspecified (principal); Z79.1 Long term (current) use of non-steroidal anti-inflammatories (NSAID); Z79.899 Other long term (current) drug therapy
CPT/HCPCS: 36415; 80053; 81001; 84703; 85025

== ENCOUNTER 2020-11-25 12:20 | Emergency (ER) | payer MEDICAID ==
--- NOTE | 2020-11-25 13:50 | Emergency Department Report ---
ED General Adult HPI - General Chief complaint: Urogenital-Female Stated complaint: VAGINAL CHECK UP Time Seen by Provider: 11/25/20 13:39 Source: patient Mode of arrival: Ambulatory Limitations: No Limitations - History of Present Illness Initial comments: 19-year-old female patient presents to the emergency department with complaints of vaginal pain and discharge for 2 days. Patient states she first noticed the pain while using the bathroom, however it is now present all the time. States she has previously been diagnosed with UTI but the pain was different at that time. She is sexually active and admits she may have been exposed to STD. Menstrual cycle began today. Denies fever, chills, abdominal pain, pelvic pain, nausea, vomiting, diarrhea, constipation. Denies other complaints at this time. - Related Data Previous Rx's Medication Instructions Recorded Last Taken Type Ibuprofen [Motrin] 600 mg PO Q8H PRN #30 tablet 08/10/18 Unknown Rx oxyCODONE /ACETAMINOPHEN [Percocet 1 tab PO Q6HR PRN #20 tablet 08/10/18 Unknown Rx 5/325] Nitrofurantoin Andrews/M-Cryst 100 mg PO Q12HR #14 capsule 02/22/19 Unknown Rx [Macrobid CAP] Ondansetron [Zofran Odt] 4 mg PO Q8HR PRN #20 tab.rapdis 02/22/19 Unknown Rx Doxycycline Monohydrate 100 mg PO BID 14 Days #28 tablet 04/03/20 Unknown Rx Fluconazole (Nf) [Diflucan TAB] 150 mg PO ONCE 1 Days #1 tablet 04/03/20 Unknown Rx metroNIDAZOLE [Flagyl] 500 mg PO Q12HR #14 tab 09/07/20 Unknown Rx Doxycycline Hyclate 100 mg PO BID 7 Days tablet. 11/25/20 Unknown Rx metroNIDAZOLE [Flagyl] 500 mg PO Q12HR 7 Days tab 11/25/20 Unknown Rx Allergies Allergy/AdvReac Type Severity Reaction Status Date / Time No Known Allergies Allergy Verified 11/25/20 13:31 ED Review of Systems ROS: Stated complaint: VAGINAL CHECK UP Other details as noted in HPI Other: GENERAL: Negative for fever, chills, weight change, anorexia, fatigue. ENT: Negative for ear pain, difficulty hearing, sore throat, nasal congestion, epistaxis. CARDIOVASCULAR: Negative for chest pain, palpitations, lower extremity swelling. PULMONARY: Negative for cough, dyspnea, wheezing, orthopnea, cyanosis. GASTROINTESTINAL: Negative for abdominal pain, nausea, vomiting, diarrhea, constipation. GENITOURINARY: Positive for vaginal pain and discharge. MUSCULOSKELETAL: Negative for joint pain, joint swelling, myalgias, back pain, neck pain. NEUROLOGICAL: Negative for headache, seizure, syncope, paresthesias, weakness. INTEGUMENTARY: Negative for erythema, rash, diaphoresis, laceration, ecchymosis. HEMATOLOGICAL: Negative for hemoptysis, hematemesis, hematochezia, hematuria. PSYCHIATRIC: Negative for hallucinations, suicidal ideation, homicidal ideation, anxiety, depression. ED Past Medical Hx - Past Medical History Hx Hypertension: No Hx Diabetes: No Hx Deep Vein Thrombosis: No Hx Renal Disease: No Hx Sickle Cell Disease: No Hx Seizures: No Hx Asthma: No Hx HIV: No - Social History Smoking Status: Never Smoker Substance Use Type: None - Medications Home Medications: Home Medications Medication Instructions Recorded Confirmed Last Taken Type Ibuprofen [Motrin] 600 mg PO Q8H PRN #30 tablet 08/10/18 Unknown Rx oxyCODONE /ACETAMINOPHEN [Percocet 1 tab PO Q6HR PRN #20 tablet 08/10/18 Unknown Rx 5/325] Nitrofurantoin Andrews/M-Cryst 100 mg PO Q12HR #14 capsule 02/22/19 Unknown Rx [Macrobid CAP] Ondansetron [Zofran Odt] 4 mg PO Q8HR PRN #20 tab.rapdis 02/22/19 Unknown Rx Doxycycline Monohydrate 100 mg PO BID 14 Days #28 tablet 04/03/20 Unknown Rx Fluconazole (Nf) [Diflucan TAB] 150 mg PO ONCE 1 Days #1 tablet 04/03/20 Unknown Rx metroNIDAZOLE [Flagyl] 500 mg PO Q12HR #14 tab 09/07/20 Unknown Rx Doxycycline Hyclate 100 mg PO BID 7 Days tablet. 11/25/20 Unknown Rx metroNIDAZOLE [Flagyl] 500 mg PO Q12HR 7 Days tab 11/25/20 Unknown Rx ED Physical Exam - General Limitations: No Limitations - Other Other exam information: General: Awake and alert. No acute distress. Head: Atraumatic, normocephalic. Eyes: EOMI. Pupils are equal and round. Normal sclera and conjunctiva. ENT: Oral mucosa is moist. Normal pharyngeal exam. Neck: Supple. No lymphadenopathy. Pulmonary: No respiratory distress. Clear to auscultation bilaterally. Cardiac: Regular rate and rhythm. Pulses are palpable and equal bilaterally. No lower extremity cyanosis or edema. Skin: Warm and dry. No rashes. Abdomen: Soft, non-tender, non-protuberant. No guarding, rigidity, or rebound. Bowel sounds are normal. No organomegaly or masses noted. Pelvic: Female manager of regulatory affairs (CORINNA Brito) present. Normal external inspection. Cervical os is closed. There is no cervical motion tenderness. Minimal amount of blood in the vaginal vault. No discharge. No adnexal tenderness or masses. No uterine tenderness. Back: Normal alignment. No CVA tenderness. Extremities: Symmetrical. Full range of motion intact. Neurological: Alert and oriented, appropriately interactive, no focal deficits. Psych: Cooperative. Appropriate mood and affect. Speech is evenly metered. Thoughts are logically construed. ED Course Vital Signs 11/25/20 11/25/20 13:29 16:30 Temperature 98.3 F Pulse Rate 72 98 H Respiratory 16 20 Rate Blood Pressure 121/80 Blood Pressure 130/74 [Right] O2 Sat by Pulse 99 99 Oximetry ED Medical Decision Making - Medical Decision Making Differential diagnosis including but not limited to: , urinary tract infection, pelvic inflammatory disease, bacterial vaginosis, candidiasis, sexually transmitted infection On reevaluation, patient remains stable. test is negative. Urinalysis shows hematuria without evidence of infection. Wet prep demonstrates presence of clue cells and candidiasis. Treated with one-time dose of Diflucan in the emergency department. Patient admits possible STD exposure; treated empirically with Rocephin and Doxycycline pending culture results. She will also be treated with Flagyl for bacterial vaginosis. Patient is afebrile, hemodynamically stable, abdominal exam is benign. No clinical indication for further diagnostic work-up on an emergent basis at this time. Patient will be discharged home with prescriptions and referral to dredge worker for close outpatient follow-up. Emphasized the importance of refraining from all sexual activity until otherwise instructed by dredge worker. Patient expressed understanding and is agreeable to plan of care. Disease transmission precautions discussed. Strict return precautions provided. Repeat exam is unremarkable and benign. History, exam, diagnostic testing, and current condition do not suggest worrisome pathology to warrant further testing, continued ED treatment, admission, or surgical evaluation at this point. Given the low probability of a significant medical illness, it would be more likely to result in harm than benefit to perform further testing at this stage. Discussed findings, presumptive diagnosis, need for follow-up and specific signs/symptoms that should prompt immediate return to the emergency department. Instructions were explained in detail to the patient in addition to giving written discharge information. Patient expressed understanding and was given the opportunity to ask questions, all of which were satisfactorily answered prior to discharge home. Critical care attestation.: If time is entered above; I have spent that time in minutes in the direct care o f this critically ill patient, excluding procedure time. ED Disposition Clinical Impression: Candidiasis of genitalia in female, Bacterial vaginosis, STD exposure Disposition: DC- TO HOME OR SELFCARE Is pt being admited?: No Does the pt Need Aspirin: No Condition: Stable Instructions: Vaginitis, [id number], Bacterial Vaginosis, [id number], Bacterial Vaginosis (ED) Additional Instructions: Take Doxycycline and Flagyl with food as directed. Increase your dietary intake of probiotic rich foods while taking these medications. Limit sun exposure while taking these medications. Do not consume any alcohol while taking these medications. You have already been treated in the emergency department for yeast infection as well as possible STD exposure. No additional medications are required. Follow-up with dredge worker this week. Call tomorrow to schedule an appointment. See referral information below. Refrain from all sexual activity until otherwise instructed by your dredge worker. Return to the emergency department immediately for new or worsening symptoms. Specifically, return to the emergency department immediately for fever, abdominal pain, rash, difficulty breathing, dehydration, or any other concerns. Prescriptions: Doxycycline Hyclate 100 mg PO BID 7 Days tablet. metroNIDAZOLE [Flagyl] 500 mg PO Q12HR 7 Days tab Referrals: YULIANA BOSCH MD [Staff Physician] - 3-5 Days BIBI ROGERS JR, MD [Staff Physician] - 3-5 Days Forms: STI Treatment and Prevention Time of Disposition: 15:46
[2020-11-25 14:31] LABS: Bilirubin,Urine NEG (Negative); Blood,Urine LG (Negative); Color,Urine Yellow (Yellow); Mucus,Urine FEW /HPF; Protein,Urine <15 mg/dL mg/dL (Negative); Urobilinogen,Urine < 2.0 mg/dL (<2.0)
[2020-11-25 15:07] LABS: HCG Qualitative,Urine Negative (Negative)
[2020-11-25] MEDS ORDERED: FLUCONAZOLE 100 MG TAB PO ONE (15:41)
[2020-11-25] MEDS ORDERED: metroNIDAZOLE 500 MG TAB PO ONE (15:41)
[2020-11-25] MEDS ORDERED: DOXYCYCLINE 100 MG CAP PO ONE (15:41)
[2020-11-25] MEDS ORDERED: LIDOCAINE-MPF (1%) 10 MG/1 ML VIAL 5 ML INFILTRATI ONE (15:41)
[2020-11-25 18:20] VITALS: BP 130/74
== END 2020-11-25 18:54 | disposition home or self-care (01) ==
LOC: ED 12:20
DX: B37.3 Candidiasis of vulva and vagina (principal); N76.0 Acute vaginitis; B96.89 Other specified bacterial agents as the cause of diseases classified elsewhere; Z20.2 Contact with and (suspected) exposure to infections with a predominantly sexual mode of transmission; Z79.1 Long term (current) use of non-steroidal anti-inflammatories (NSAID); Z79.899 Other long term (current) drug therapy
CPT/HCPCS: 81001; 81025; 87210; 87591; 96372; 99283; J0696